=== PATIENT | female | born 1970 | race Caucasian/White ===

== ENCOUNTER 2025-07-01 09:30 | Inpatient (IN) | payer MEDICAID ==
[2025-07-01] VITALS (7 sets, daily range): BP systolic 110–139; BP diastolic 56–89; PULSE 76–88; RESP 14–26; TEMP 36.8–36.974; O2SAT 94–97
[~2025-07-01] VITALS: Ht 172.7 cm; Wt 152.4 kg
[2025-07-01] MEDS: LEVOFLOXACIN 750MG PREMIX 150 ML IV ONE (10:34)
[2025-07-01] MEDS: SODIUM CHLORIDE 0.9% (SEPSIS BOLUS) IV ONE (10:34)
[2025-07-01 11:11] LABS: BASOPHILS % 1.0 % (0.0-2.0); EOSINOPHILS % 2.2 % (0.0-5.0); HEMATOCRIT. 34.2 % (36.0-48.0); HEMOGLOBIN. 9.4 g/dL (12.0-16.0); LYMPHOCYTES % 9.2 % (20.0-50.0); MEAN PLATELET VOLUME 8.8 fl (7.4-10.4); MONOCYTES % 7.4 % (2.0-8.0); NEUTROPHILS % 80.2 % (40.0-76.0); PLATELET 335 x1000/uL (130-400); RED BLOOD CELL COUNT 4.96 mill/uL (4.2-5.4); RED CELL DISTRIBUTION WIDTH 24.4 % (11.6-14.6)
[2025-07-01 11:12] LABS: ADD RBC MORPHOLOGY YES
[2025-07-01 11:21] LABS: INR 1.0
[2025-07-01 11:31] LABS: CREATININE 0.9 mg/dL (0.6-1.0); TROPONIN I HIGH SENSITIVITY < 4 ng/L (3.0-34); UREA NITROGEN BLOOD 15 mg/dL (9-23)
[2025-07-01 11:33] LABS: ASPARTATE AMINOTRANSFERASE 19 IU/L (<34); BILIRUBIN DIRECT 0.1 mg/dL (<=3.0); BILIRUBIN TOTAL 0.4 mg/dL (0.1-1.0)
[2025-07-01 11:34] LABS: PROTEIN TOTAL 6.7 g/dL (6.0-8.3)
[2025-07-01 11:48] LABS: PLATELET ESTIMATE NORMAL
[2025-07-01] MEDS: IPRATROPIUM/ALBUTEROL 0.5-3(2.5)MG/3ML NEB HHN SCH (12:14)
[2025-07-01] MEDS ORDERED: ACETAMINOPHEN 325MG TABLET PO PRN (12:30)
[2025-07-01 13:12] LABS: TROPONIN I HIGH SENSITIVITY < 4 ng/L (3.0-34)
[2025-07-01 13:49] LABS: BG BASE EXCESS -0.7 mmol/L (-2.0-3.0); BG CARBOXYHEMOGLOBIN 1.7 % (0.5-1.5); BG DEOXYHEMOGLOBIN 5.7 % (0.0-5.0); BG FRACTION INSPIRED OXYGEN 21; BG HCO3 ACT 23.3 mmol/L (21.0-28.0); BG METHEMOGLOBIN 0.1 % (0.5-1.5); BG OXYGEN SATURATION 94.2 % (94.0-98.0); BG OXYHEMOGLOBIN 92.5 % (94.0-98.0); BG PCO2 36.2 mmHg (32.0-45.0); BG PH 7.427 (7.350-7.450); BG PO2 69.1 mmHg (83.0-108.0); BG SAMPLE SITE LEFT RADIAL; BG TOTAL HEMOGLOBIN 10.2 g/dL (12.0-16.0); BG VENT MODE ROOM AIR
[2025-07-01] MEDS: ACETAMINOPHEN 325MG TABLET PO PRN (14:31)
[2025-07-01] MEDS: PNEUMOCOCCAL 20-VAL CONJ-DIP CRM 0.5ML IM ONE (17:45)
[2025-07-01] MEDS: INFLUENZA VACCINE 05/PF 0.5 ML SYRINGE IM ONE (17:45)
[2025-07-01] MEDS: ENOXAPARIN 40MG/0.4ML SYR SUBCUT SCH (18:08)
[2025-07-01 19:02] LABS: COLOR URINE YELLOW (YELLOW); GLUCOSE URINE NEGATIVE (NEGATIVE); KETONES URINE NEGATIVE (NEGATIVE); LEUKOCYTE ESTERASE URINE NEGATIVE (NEGATIVE); NITRITE URINE NEGATIVE (NEGATIVE); OCCULT BLOOD URINE NEGATIVE (NEGATIVE); PH URINE 5.5 (4.5-8.0); PROTEIN URINE NEGATIVE (NEGATIVE); SPECIFIC GRAVITY URINE 1.025 (1.005-1.030); UROBILINOGEN URINE 1.0 E.U./dL (0.2-1.0)
[2025-07-01] MEDS: ALBUTEROL (0.083%) 2.5MG/3ML NEB HHN SCH (19:30)
[2025-07-01 19:38] LABS: *AMPHETAMINES SCREEN URINE NEGATIVE (NEGATIVE); *BARBITURATES SCREEN URINE NEGATIVE (NEGATIVE); *BENZODIAZEPINES SCREEN URINE NEGATIVE (NEGATIVE); *COCAINE SCREEN URINE NEGATIVE (NEGATIVE); METHADONE URINE SCREEN NEGATIVE (NEGATIVE)
[2025-07-01 19:39] LABS: CANNABINOID URINE SCREEN NEGATIVE (NEGATIVE); ECSTASY MDMA SCREEN URINE NEGATIVE (NEGATIVE); OPIATES URINE SCREEN PRESUMPTIVE POSITIVE (NEGATIVE); PHENCYCLIDINE URINE SCREEN NEGATIVE (NEGATIVE)
[2025-07-01 19:57] LABS: CLARITY URINE TURBID (CLEAR)
[2025-07-01 19:58] LABS: BACTERIA URINE NONE SEEN; RBC URINE NONE SEEN /hpf (0-2); SQUAMOUS EPITHELIAL CELL URINE FEW /lpf (RARE/1+); WBC URINE 0-2 /hpf (0-2)
[2025-07-01 19:59] LABS: AMORPHOUS SEDIMENT URINE 4+ /lpf
[2025-07-02] VITALS (10 sets, daily range): BP systolic 98–143; BP diastolic 58–93; PULSE 76–93; RESP 14–21; TEMP 36.6–36.9; O2SAT 89–96
[2025-07-02 07:21] LABS: BASOPHILS % 0.8 % (0.0-2.0); EOSINOPHILS % 4.7 % (0.0-5.0); HEMATOCRIT. 31.8 % (36.0-48.0); HEMOGLOBIN. 9.1 g/dL (12.0-16.0); LYMPHOCYTES % 12.1 % (20.0-50.0); MEAN PLATELET VOLUME 8.8 fl (7.4-10.4); MONOCYTES % 7.8 % (2.0-8.0); NEUTROPHILS % 74.6 % (40.0-76.0); PLATELET 309 x1000/uL (130-400); RED BLOOD CELL COUNT 4.66 mill/uL (4.2-5.4); RED CELL DISTRIBUTION WIDTH 24.4 % (11.6-14.6)
[2025-07-02 07:24] LABS: CREATININE 0.8 mg/dL (0.6-1.0); UREA NITROGEN BLOOD 12 mg/dL (9-23)
[2025-07-02 07:26] LABS: ASPARTATE AMINOTRANSFERASE 15 IU/L (<34); BILIRUBIN TOTAL 0.4 mg/dL (0.1-1.0); PROTEIN TOTAL 6.4 g/dL (6.0-8.3)
[2025-07-02 07:29] LABS: ADD RBC MORPHOLOGY NO
[2025-07-02] MEDS: ASPIRIN 81MG TABLET PO SCH (09:09)
[2025-07-02] MEDS: LORAZEPAM 0.5MG TABLET PO NR (10:48)
[2025-07-02] MEDS ORDERED: TRAZ-252 PO (14:26)
[2025-07-02] MEDS ORDERED: SERT50TA PO (14:26)
[2025-07-02] MEDS ORDERED: lipitor (14:26)
[2025-07-02] MEDS ORDERED: PANT40SU PO (14:26)
[2025-07-02] MEDS ORDERED: FERR-71 PO (14:27)
[2025-07-02] MEDS ORDERED: POTA-354 PO (14:28)
[2025-07-02] MEDS ORDERED: POTA20LI52 PO (14:28)
[2025-07-02] MEDS ORDERED: MEDICATION NOT ON FORMULARY EA (Trazodone Hcl 100 MG) PO SCH (16:00)
[2025-07-02] MEDS: FERROUS SULFATE 325MG TABLET PO SCH (16:45)
[2025-07-02] MEDS: TRAZODONE HCL 50MG TABLET PO SCH (16:52)
[2025-07-02] MEDS: SERTRALINE HCL 50MG TABLET PO SCH (16:52)
[2025-07-02] MEDS: ZOLPIDEM TARTRATE 5MG TABLET PO PRN (21:32)
[2025-07-03] VITALS (9 sets, daily range): BP systolic 98–119; BP diastolic 54–90; PULSE 78–90; RESP 16–28; TEMP 36.7–36.8; O2SAT 90–98
[2025-07-03] MEDS ORDERED: REGADENOSON 0.4 MG/5 ML IV NR (08:30)
[2025-07-03] MEDS: ALPRAZOLAM 0.25 MG TABLET PO PRN (11:15)
[2025-07-03] MEDS ORDERED: ASPI-1160 PO (15:35)
[2025-07-03 19:10] LABS: BG BASE EXCESS 2.3 mmol/L (-2.0-3.0); BG CARBOXYHEMOGLOBIN 1.5 % (0.5-1.5); BG DEOXYHEMOGLOBIN 5.2 % (0.0-5.0); BG FRACTION INSPIRED OXYGEN 21; BG HCO3 ACT 27.5 mmol/L (21.0-28.0); BG METHEMOGLOBIN 0.0 % (0.5-1.5); BG OXYGEN SATURATION 94.7 % (94.0-98.0); BG OXYHEMOGLOBIN 93.3 % (94.0-98.0); BG PCO2 45.9 mmHg (32.0-45.0); BG PH 7.396 (7.350-7.450); BG PO2 74.2 mmHg (83.0-108.0); BG SAMPLE SITE LEFT RADIAL; BG TOTAL HEMOGLOBIN 10.2 g/dL (12.0-16.0); BG VENT MODE ROOM AIR
[2025-07-03] MEDS: MAGNESIUM/ALUMINUM HYDROXIDE/SIMETHICONE 30ML UDC PO PRN (20:48)
[2025-07-03 22:02] LABS: BASOPHILS % 0.7 % (0.0-2.0); EOSINOPHILS % 3.1 % (0.0-5.0); HEMATOCRIT. 31.0 % (36.0-48.0); HEMOGLOBIN. 8.7 g/dL (12.0-16.0); LYMPHOCYTES % 14.7 % (20.0-50.0); MEAN PLATELET VOLUME 9.0 fl (7.4-10.4); MONOCYTES % 8.9 % (2.0-8.0); NEUTROPHILS % 72.6 % (40.0-76.0); PLATELET 325 x1000/uL (130-400); RED BLOOD CELL COUNT 4.52 mill/uL (4.2-5.4); RED CELL DISTRIBUTION WIDTH 24.6 % (11.6-14.6)
[2025-07-03 22:19] LABS: CREATININE 0.7 mg/dL (0.6-1.0)
[2025-07-03 22:20] LABS: UREA NITROGEN BLOOD 12 mg/dL (9-23)
[2025-07-03 22:21] LABS: ASPARTATE AMINOTRANSFERASE 17 IU/L (<34)
[2025-07-03 22:22] LABS: BILIRUBIN TOTAL 0.3 mg/dL (0.1-1.0); PROTEIN TOTAL 6.2 g/dL (6.0-8.3)
[2025-07-04] VITALS (12 sets, daily range): BP systolic 102–155; BP diastolic 57–77; PULSE 79–94; RESP 11–26; TEMP 36.7–37.2; O2SAT 84–99
[2025-07-04 06:45] LABS: BASOPHILS % 1.0 % (0.0-2.0); EOSINOPHILS % 4.3 % (0.0-5.0); HEMATOCRIT. 31.3 % (36.0-48.0); HEMOGLOBIN. 8.8 g/dL (12.0-16.0); LYMPHOCYTES % 14.0 % (20.0-50.0); MEAN PLATELET VOLUME 8.5 fl (7.4-10.4); MONOCYTES % 7.0 % (2.0-8.0); NEUTROPHILS % 73.7 % (40.0-76.0); PLATELET 309 x1000/uL (130-400); RED BLOOD CELL COUNT 4.55 mill/uL (4.2-5.4); RED CELL DISTRIBUTION WIDTH 24.2 % (11.6-14.6)
[2025-07-04 06:53] LABS: CREATININE 0.7 mg/dL (0.6-1.0); UREA NITROGEN BLOOD 11 mg/dL (9-23)
[2025-07-04 06:55] LABS: ASPARTATE AMINOTRANSFERASE 15 IU/L (<34); BILIRUBIN TOTAL 0.3 mg/dL (0.1-1.0); PROTEIN TOTAL 6.2 g/dL (6.0-8.3)
[2025-07-04 07:07] LABS: ADD RBC MORPHOLOGY NO
[2025-07-04] MEDS ORDERED: TIOT18CA3 INH (13:22)
[2025-07-05] VITALS (10 sets, daily range): BP systolic 101–137; BP diastolic 49–94; PULSE 83–98; RESP 15–27; TEMP 36.7–37.1; O2SAT 90–98
[2025-07-06] VITALS (7 sets, daily range): BP systolic 104–135; BP diastolic 59–95; PULSE 80–92; RESP 16–28; TEMP 36.6–37.1; O2SAT 83–97
[2025-07-06] MEDS: ZOLPIDEM TARTRATE 5MG TABLET PO PRN (20:54)
[2025-07-07] VITALS: BP 117/59; PULSE 83; RESP 18; TEMP 36.7; O2SAT 93
[2025-07-07 04:00] VITALS: BP 97/74; PULSE 82; RESP 18; TEMP 36.6; O2SAT 96
[2025-07-07 08:00] VITALS: BP 91/76; PULSE 72; RESP 16; TEMP 36.8; O2SAT 99
[2025-07-07] MEDS: FUROSEMIDE 40MG/4ML VIAL IVP SCH (11:12)
[2025-07-07 12:00] VITALS: BP 122/85; PULSE 80; RESP 22; TEMP 36.9; O2SAT 95
[2025-07-07 15:31] VITALS: BP 122/85; PULSE 80; RESP 22; TEMP 98.4
== END 2025-07-07 16:18 | disposition home or self-care (01) | DRG 194 ==
LOC: ER 09:30 → EDBEDREQ 10:11 → 3WST 11:43 → EDBEDREQ 11:51 → EDBEDREQTM 11:51 → ENRESERV 11:56
PROVIDERS: ADMIT Internal Medicine; ATTEND Internal Medicine
DX: I11.0 Hypertensive heart disease with heart failure (principal); I20.0 Unstable angina; I50.31 Acute diastolic (congestive) heart failure; J44.9 Chronic obstructive pulmonary disease, unspecified; D64.9 Anemia, unspecified; G89.29 Other chronic pain; F41.9 Anxiety disorder, unspecified; K44.9 Diaphragmatic hernia without obstruction or gangrene; Z79.899 Other long term (current) drug therapy; Z88.0 Allergy status to penicillin
CPT/HCPCS: 36415; 36600; 71045; 78452; 80048; 80053; 80076; 80305; 81003; 82375; 82805; 83605; 83880; 84145; 84484; 85025; 90686; 90732; 93005; 93017; 93306; 94070; 94618; 94640; 94664; 97116; 97162; 97530; 99291; A4606; A9500; J1650; J1938; J1956; J2785; J7030